=== PATIENT | female | born 1950 | race Caucasian/White ===

== ENCOUNTER 2024-01-23 21:11 | Observation (INO) | payer MEDICARE, OTHER, SELFPAY ==
[2024-01-23 18:47] VITALS: BP 159/76
[2024-01-23 19:30] VITALS: BP 149/74
[2024-01-23 19:44] LABS: % Basophils 0.9 % (0-2); % Eosinophils 1.8 % (0-6); % Immature Granulocytes 0.2 % (0-0.5); % Lymphocytes 35.4 % (20.5-51.1); % Monocytes 7.7 % (1.7-9.3); Absolute Basophils 0.1 10^3/uL (0-0.2); Absolute Eosinophils 0.1 10^3/uL (0-0.7); Absolute Lymphocytes 2.3 10^3/uL (1.2-3.4); Absolute Monocytes 0.5 10^3/uL (0.1-0.6); Absolute Neutrophils 3.6 10^3/uL (1.4-6.5); Hematocrit 37.2 % (37.0-47.0); Hemoglobin 12.7 g/dL (12.0-16.0); Mean Corp Hgb Conc. 34.1 g/dL (33.0-37.0); Mean Corpuscular Hgb 28.8 pg (27.0-31.0); Mean Corpuscular Volume 84.4 fL (81.0-99.0); Mean Platelet Volume 9.1 fL (7.4-10.4); Nucleated Red Blood Cells % 0 %; Platelet Count 236 10^3/uL (130-400); Red Blood Cell Count 4.41 10^6/uL (4.20-5.40); Red Cell Dist. Width 13.4 % (11.5-14.5); White Blood Cell Count 6.6 10^3/uL (4.8-10.8)
[2024-01-23 19:55] LABS: ALT (SGPT) 20 U/L (0-35); AST (SGOT) 53 U/L (14-36); Albumin 4.3 g/dl (3.5-5.0); Alkaline Phosphatase 74 U/L (38-126); Blood Urea Nitrogen 21 mg/dl (7-17); Calcium 9.7 mg/dl (8.4-10.2); Carbon Dioxide 23 mmol/L (22-30); Chloride 105 mmol/L (98-107); Glucose 101 mg/dl (70-99); Potassium 3.9 mmol/L (3.5-5.1); Sodium 136 mmol/L (135-145); Total Bilirubin 0.5 mg/dl (0.2-1.3); Total Protein 7.2 g/dl (6.3-8.2); eGFR > 60.00
[2024-01-23 20:03] LABS: Troponin I < 0.012 ng/ml
[2024-01-23 20:09] VITALS: BP 132/63
--- NOTE | 2024-01-23 20:29 | ED.GENMED ---
History of Present Illness
General
Chief Complaint: Chest Pain
Time Seen by Provider: 01/23/24 19:15
Travel History
Have you had any contact with someone who has COVID-19?: No
Do you have any symptoms of coronavirus? Fever > 100 degrees, chills, cough, shortness of breath, sore throat, loss of taste or smell, muscle aches, or headache?: No
History of Present Illness
History of Present Illness:
73-year-old female with history of hypertension and hyperlipidemia presents to the emergency department for eval of left-sided chest pain ongoing for the past 2 to 3 days. She denies any pleuritic nature to pain or positional but does note that it
is worse with exertion. Pain is constant and resolving. Currently rated 5 out of 10. Describes the pain as a burning sensation. Not worse after eating. Denies any associated fever, chills, sweats, shortness of breath, or lower extremity
swelling.
Past History
Past History
ED Past Medical History: HTN, Hypercholesterolemia and Other (Headache)
ED Past Surgical History: None
Social History
Tobacco: Non-smoker
Alcohol: None
Drug: None
Living: with family
Review of Systems
Review of Systems
Allergies reviewed?: Yes
All Other Systems: ROS reviewed and negative except as documented in HPI and ROS
Phy Exam
Physical Exam
Physical Exam:
GEN: Well appearing, NAD, WDWN
HEENT: Oral mucosa moist, no scleral icterus
Cardiac: Regular rate and rhythm, subtle 1 out of 6 systolic murmur
Lung: No respiratory distress, no tachypnea lungs clear to auscultation bilaterally
MSK: No gross deformity or injuries no lower extremity edema
Skin: Good color, no pallor or jaundice, no rashes
Neuro: AO x3, moves all extremities freely
Psych: Calm, cooperative
Scores
Heart Score for Chest Pain Patients
STEMI patient?: No
History: Highly Suspicious
ECG: Normal
Age: >/= 65 years
Risk Factors: 1 or 2 Risk Factors
Troponin: </= Normal Limit
Heart Score for Chest Pain Patients: 5
Heart Score Risk: 20.3% MACE over next 6 weeks
Course
Orders/Labs/Results
Orders:
Orders
01/23/24 18:49
Electrocardiogram (*1) Urgent
Reason for Study: Chest Pain
EKG- Treatment ONCE
01/23/24 19:29
CR Chest - 2 Views Urgent
Comment:
Reason For Exam: Chest pain
01/23/24 19:32
Complete Blood Count/With Diff Urgent
Comprehensive Metabolic Panel Urgent
Troponin I Urgent
01/23/24 20:19
Aspirin Chewable [Low Strength Aspirin] 324 mg PO NOW STA
Nitroglycerin Sublingual [Nitrostat (Sublingual)] 0.4 mg SL NOW STA
01/23/24 20:47
Admit/Transfer Patient As Directed
Co-Sign Provider:
Level of Care: Observation services
Assign to:: Telemetry
Physician / Group: brie
Diagnosis: chest pain
Reason for Telemetry: Chest Pain syndromes
Date to Stop Telemetry: 01/25/24
Time to Stop Telemetry: 11:00
01/23/24 20:48
Code Status As Directed
Resuscitation Status: Full Code
01/23/24 22:30
Troponin I Routine
01/25/24 11:00
DC Protocol for Telemetry ONCE
Abnormal Lab Results
01/23/24
19:32
BUN 21 H mg/dl
(7-17)
Glucose 101 H mg/dl
(70-99)
AST 53 H U/L
(14-36)
01/23/24 19:32
01/23/24 19:32
Vital Signs
Initial and Last Documented VS:
Initial Vital Signs
Temp Pulse Resp BP Pulse Ox
98.7 F 69 18 159/76 97
01/23/24 18:47 01/23/24 18:47 01/23/24 18:47 01/23/24 18:47 01/23/24 18:47
Last Documented Vital Signs
Temp Pulse Resp BP Pulse Ox
98.7 F 69 18 159/76 100
01/23/24 18:47 01/23/24 18:47 01/23/24 18:47 01/23/24 18:47 01/23/24 19:40
MDM/Problems Addressed
MDM/Problems Addressed:
Patient does have high risk for acute coronary syndrome given the exertional nature of her chest pain. It is certainly reassuring that the EKG and troponins are negative. However given her advanced age, multiple cardiac risk factors, and
exertional pain, I feel she is too high risk to be discharged home at this time. Will admit to the hospitalist service for further ischemic evaluation. Given her normal vital signs do not suspect pulmonary embolism as the pain is nonpleuritic and
she has no risk factor for this
Comment
Comment:
EKG independently interpreted by me shows normal sinus rhythm at a rate of [address] changes concerning for ischemia, QTc of 450
*Critical Care Note
Total Time (30-74mins, 75-104mins- exclusive of procedures): Not Applicable
ED Attending Note
-
Portions of this chart may have been created with voice recognition software.� Occasional wrong word or��sound alike� substitutions may have occurred due to the inherent limitations of voice recognition software.
Discharge Plan
Departure
Patient Disposition: Admit
Date of Disposition: 01/23/24
Time of Disposition: 20:31
Admit to: Telemetry
Presentation/result/management discussed w/ accepting MD/DO: Hospitalist
Discharge Problem:
Chest pain with high risk of acute coronary syndrome
Prescriptions:
No Action
amlodipine 5 MG tablet
5 mg PO DAILY
atorvastatin 10 MG tablet
10 mg PO QPM
losartan 50 mg tablet
50 mg PO DAILY
clonidine HCl 0.1 mg tablet
0.1 mg PO DAILY PRN (Reason: blood pressure)
labetalol 200 mg tablet
200 mg PO BID
aspirin 81 mg tablet,delayed release (DR/EC)
81 mg PO DAILY
magnesium oxide 400 mg (241.3 mg magnesium) tablet
400 mg PO DAILY
hydrochlorothiazide 12.5 mg capsule
12.5 mg PO DAILY
albuterol sulfate 90 mcg/actuation HFA aerosol inhaler
2 puff INHALATION R Q4HPRN PRN (Reason: sob/wheezing)
fluticasone furoate-vilanterol [Breo Ellipta] 100-25 mcg/dose blister with device
1 inh INHALATION R BIDPRN PRN (Reason: sob)
pantoprazole [Protonix] 40 mg tablet,delayed release (DR/EC)
40 mg PO QPM
Referrals:
Avtar Goodman MD [Family Provider] -
Interventions
Interventions:
*Risk Screen - Suicide Last Done: 01/23/24 18:47
*General Assessment Last Done: 01/23/24 18:47
*Neglect/Abuse Screening Last Done: 01/23/24 18:47
ED- Fall Risk Assessment Last Done: 01/23/24 19:40
ED- Cardiac Assessment Last Done: 01/23/24 19:40
Discharge Date and Time
Print Language: MALAY
[2024-01-23] MEDS: LOW STRENGTH ASPIRIN 324 MG PO (20:30)
[2024-01-23] MEDS: NITROSTAT (SUBLINGUAL) 0.400000000000000022 MG SL (20:30)
--- NOTE | 2024-01-23 20:50 | HPS.HSE ---
Family Physician
-
Family Physician: Avtar Goodman
Chief Complaint
-
chest pain
History of Present Illness
73-year-old Cook Islander-speaking female with past medical history of hypertension, hyperlipidemia, GERD presenting for left-sided chest pain for the past 2 days. Pain is worse with exertion. Pain described as aching and not related to eating, movement
or breathing. She also has some shortness of breath with exertion. Patient did yard work yesterday but pain started before that. Denies fevers or chills, sweats, or lower extremity edema. No history of heart disease.
Both parents had heart disease and in their 80s.
Patient does not drink alcohol or smoke.
Medical History
Past Medical History
Past Medical History: Reports Other ( hypertension, hyperlipidemia, GERD)
Past Surgical History: Reports None
Social History
Tobacco: Non-smoker
Alcohol: None
Drug: None
Family History
Family History: Not pertinent
Allergies / Home Medications
Allergies reflects when Allergies were last updated in [facility].
Home Medications with original date entered in [facility]
Allergy/Medication List:
Allergies
Allergy/AdvReac Type Severity Reaction Status Date / Time
No Known Allergies Allergy Verified 01/27/23 19:09
Home Medications
amlodipine 5 mg tablet 5 mg PO DAILY 11/16/21
atorvastatin 10 mg tablet 10 mg PO QPM 11/16/21
pantoprazole 40 mg tablet,delayed release (Protonix) 40 mg PO DAILY #14 tabs 01/28/23
Review of Systems
-
History Source: Patient
A 12 point ROS was completed and negative except as noted: Yes
Constitutional: Reports No Symptoms
EENT: Reports No Symptoms
Respiratory: Reports No Symptoms
Cardiac: Reports See HPI
Abdomen/GI: Reports No Symptoms
: Reports No Symptoms
Musculoskeletal: Reports No Symptoms
Skin: Reports No Symptoms
Neurological: Reports No Symptoms
Endocrine: Reports No Symptoms
Hematologic/Lymphatic: Reports No Symptoms
Psych: Reports No Symptoms
Physical Exam
Vital Signs
Vital Signs
Temp Pulse Resp BP Pulse Ox
98.7 F 69 18 159/76 100
01/23/24 18:47 01/23/24 18:47 01/23/24 18:47 01/23/24 18:47 01/23/24 19:40
Physical Exam
General: Well Developed, Well Nourished and No Apparent Distress
HEENT: NormoCephalic, Moist mucous membranes and Atraumatic
Respiratory: Clear
Cardiac: S1/S2 and Regular Rhythm; No Murmur or Rub
GI: Soft, Non Tender, Non Distended and Normal Bowel Sounds; No Organomegaly
Rectal: Deferred by Provider
Musculoskeletal: No Clubbing, No Cyanosis and No Edema
Skin: No Rash
Neuro: Nonfocal/grossly intact
Laboratory Results
-
01/23/24 19:32
01/23/24 19:32
Laboratory Results
Total Bilirubin 0.5 mg/dl (0.2-1.3) 01/23/24 19:32
AST 53 U/L (14-36) H 01/23/24 19:32
ALT 20 U/L (0-35) 01/23/24 19:32
Alkaline Phosphatase 74 U/L (38-126) 01/23/24 19:32
Troponin I < 0.012 ng/ml 01/23/24 19:32
Data Reviewed
-
Lab Data: Labs Reviewed by me
Old Records: Reviewed
Impression/Plan
-
IMPRESSION:
PLAN:
# Atypical chest pain, possibly musculoskeletal
-Left chest tender to palpation
-EKG shows normal sinus rhythm with T wave inversion in V1
-Chest x-ray unremarkable
-Troponin negative, continue to trend
-Aspirin and nitro given with improvement in pain
-Cardiology consulted, n.p.o. past midnight recommended
Essential hypertension
-Continue losartan, labetalol, hydrochlorothiazide, clonidine, amlodipine
Hyperlipidemia
-Continue statin
GERD
-Continue Protonix
Full code
DVT prophylaxis�heparin
n.p.o. past midnight
[2024-01-23 21:00] VITALS: BP 129/67
[2024-01-23 21:55] VITALS: BP 147/55
[2024-01-23 22:04] VITALS: BMI 37.4
[2024-01-24 02:02] LABS: Troponin I < 0.012 ng/ml
[2024-01-24 03:25] VITALS: BP 112/78
--- NOTE | 2024-01-24 06:36 | PTCARENOTE ---
Pt admitted to [facility] from ER. AAOx3. No c/o pain. Pt afebrile. Lungs clear, on room air. No N/V or stool. Skin intact. Language line at bedside for use of [employer] school psychology specialist. Awaiting cardiology consult and further plan.
[2024-01-24 07:49] LABS: % Basophils 0.9 % (0-2); % Eosinophils 2.3 % (0-6); % Immature Granulocytes 0.2 % (0-0.5); % Lymphocytes 38.4 % (20.5-51.1); % Monocytes 9.2 % (1.7-9.3); Absolute Basophils 0.1 10^3/uL (0-0.2); Absolute Eosinophils 0.1 10^3/uL (0-0.7); Absolute Lymphocytes 2.1 10^3/uL (1.2-3.4); Absolute Monocytes 0.5 10^3/uL (0.1-0.6); Absolute Neutrophils 2.7 10^3/uL (1.4-6.5); Hematocrit 37.3 % (37.0-47.0); Hemoglobin 12.7 g/dL (12.0-16.0); Mean Corpuscular Hgb 28.3 pg (27.0-31.0); Mean Corpuscular Volume 83.3 fL (81.0-99.0); Nucleated Red Blood Cells % 0 %; Platelet Count 229 10^3/uL (130-400); Red Blood Cell Count 4.48 10^6/uL (4.20-5.40); Red Cell Dist. Width 13.3 % (11.5-14.5); White Blood Cell Count 5.5 10^3/uL (4.8-10.8)
[2024-01-24] MEDS: SYMBICORT 80/4.5 MCG INHALER 2 PUFF INH (07:54)
[2024-01-24 08:09] LABS: Troponin I < 0.012 ng/ml
[2024-01-24] MEDS: HEPARIN 5000 UNITS SC (08:11)
[2024-01-24 08:14] VITALS: BP 134/67
[2024-01-24] MEDS: TRANDATE 200 MG PO (08:15)
[2024-01-24] MEDS: ORETIC 12.5 MG PO (08:15)
[2024-01-24] MEDS: ASPIR LOW (ENTERIC COATED) 81 MG PO (08:15)
[2024-01-24] MEDS: COZAAR 50 MG PO (08:15)
[2024-01-24] MEDS: MAG-TAB SR 84 MG PO (08:15)
[2024-01-24] MEDS: NORVASC 5 MG PO (08:16)
--- NOTE | 2024-01-24 09:08 | CON.CAR ---
Addendum entered and electronically signed by Jake Garcia MD 01/24/24 13:10:
Patient seen and examined in collaboration with MACHINE LEATHER TRIMMER; agree with below.
-Patient with likely atypical chest pain; no objective findings consistent with ACS.
-Transthoracic echocardiogram today revealed normal LVEF; mild to moderate aortic stenosis was noted.
-The patient can be discharged home from a cardiac standpoint with close follow-up with her primary Headlight Assembler (Dr. Serrano) who can arrange an outpatient stress test in the near future.
Original Note:
Consultation
Consultation Request
Date/Time Consultation Requested: 01/23/242199
Date/Time Consultation Performed: 01/24/24907
Requesting Provider: Dr. Leyva
Performing Provider: Adelaida WHYTE for Dr. Garcia
Reason for Consultation: chest discomfort
Medical History
-
Chief Complaint: chest discomfort
History of Present Illness:
73 y/o female with hypertension, dyslipidemia, and GERD who is here for evaluation of chest discomfort that has been present since last , with some associated SOB. It has been fairly constant. She describes it as a dull ache to the left
upper chest. It is not worse with exertion, or to palpation. She saw her family doctor yesterday, who suggested she come to the ER. She has shoulder pain from arthritis and wonders if they could be related. She is in no distress at the time of my
assessment. Trops and EKG normal. Of note, she is Tajik-speaking and we used the language line with a echo technician to communicate effectively.
Past Medical History
Past Medical History: GERD, HTN and Hypercholesterolemia
Social History
Tobacco: Non-Smoker
Family History
Family History: Reviewed & Not Pertinent
Allergies / Home Medications
Allergy/AdvReac Type Severity Reaction Status Date / Time
No Known Allergies Allergy Verified 01/27/23 19:09
�Medication �Instructions �Recorded �Confirmed �Type
amlodipine 5 mg tablet 5 mg PO DAILY 11/16/21 01/23/24 History
atorvastatin 10 mg tablet 10 mg PO QPM 11/16/21 01/23/24 History
albuterol sulfate 90 mcg/actuation 2 puff inhalation R Q4HPRN PRN 01/23/24 01/23/24 History
aerosol inhaler sob/wheezing
aspirin 81 mg tablet,delayed 81 mg PO DAILY 01/23/24 01/23/24 History
release
clonidine HCl 0.1 mg tablet 0.1 mg PO DAILY PRN blood pressure 01/23/24 01/23/24 History
fluticasone furoate 100 1 inh inhalation R BIDPRN PRN sob 01/23/24 01/23/24 History
mcg-vilanterol 25 mcg/dose
inhalation powder (Breo Ellipta)
hydrochlorothiazide 12.5 mg capsule 12.5 mg PO DAILY 01/23/24 01/23/24 History
labetalol 200 mg tablet 200 mg PO BID 01/23/24 01/23/24 History
losartan 50 mg tablet 50 mg PO DAILY 01/23/24 01/23/24 History
magnesium oxide 400 mg (241.3 mg 400 mg PO DAILY 01/23/24 01/23/24 History
magnesium) tablet
pantoprazole 40 mg tablet,delayed 40 mg PO QPM 01/23/24 01/23/24 History
release (Protonix)
Review of Systems
-
History Source: Patient
All other systems: Negative unless noted
Respiratory: Trouble Breathing
Cardiac: Chest Pain
Physical Exam
Vital Signs
Temp Pulse Resp BP Pulse Ox
98.3 F 60 16 134/67 95
01/24/24 08:14 01/24/24 08:14 01/24/24 08:14 01/24/24 08:14 01/24/24 08:14
Lab Results
01/24/24 07:33
Troponin I < 0.012 ng/ml 01/24/24 07:33
Physical Exam
General: Well Developed, Well Nourished and No Apparent Distress
HEENT: Normocephalic and Anicteric
Respiratory: Clear and Non Labored Respirations
Cardiac: Regular Rhythm
Skin: Warm and Dry
Neuro: AO x 3
Psych: Calm
Impression / Plan
-
Chest discomfort:
-atypical
-trops and EKG's okay
-check echo and if echo normal, should follow-up with OP gis mapping technician for stress testing (hx HTN, dyslipidemia)
HTN:
-stable
-continue meds
Dyslipidemia:
-on statin
GERD:
-on PPI
Data Reviewed
-
EKG: Tracing Personally Visualized and interpreted (NSR 66 BPM)
Radiology: Report Reviewed by me (CXR: No acute cardiopulmonary process.)
Labs: Labs Reviewed by me
[2024-01-24 09:11] LABS: ALT (SGPT) 19 U/L (0-35); AST (SGOT) 48 U/L (14-36); Albumin 3.8 g/dl (3.5-5.0); Alkaline Phosphatase 75 U/L (38-126); Blood Urea Nitrogen 19 mg/dl (7-17); Calcium 9.3 mg/dl (8.4-10.2); Carbon Dioxide 26 mmol/L (22-30); Chloride 105 mmol/L (98-107); Estimated Creatinine Clearance 74 ml/min; Glucose 91 mg/dl (70-99); Potassium 3.7 mmol/L (3.5-5.1); Sodium 138 mmol/L (135-145); Total Bilirubin 0.7 mg/dl (0.2-1.3); Total Protein 6.6 g/dl (6.3-8.2); eGFR > 60.00
--- NOTE | 2024-01-24 13:00 | W.PN.HOSP.TC ---
Addendum entered and electronically signed by Roscoe Lim MD 01/24/24 17:01:
Patient seen and examined
Discussed with cardiology
Impression/plan:
73 years old female with hypertension, dyslipidemia, asthma, obesity BMI of 37 presents with left-sided chest pain
Most likely atypical, when patient refers to positional pain affecting with and along left shoulder arthritis.
Denies any shortness of breath
Hemodynamically stable with stable respiratory status upon presentation
Chest pain-free at time of my evaluation.
Exam unremarkable with no evidence of distress bronchospasm.
ECG normal sinus rhythm
Serial cardiac markers within normal limits
Echocardiogram with preserved biventricular function and no valvular abnormalities.
D-dimer negative.
Continue preadmission antihypertensive regimen
Continue statin
Outpatient cardiology follow-up for stress test.
Original Note:
Today's Communication/Plan
-
D-dimer negative
Possible discharge today, pending U/S bilateral lower extremities
Assessment / Plan
Assessment / Plan
IMPRESSION: This is a 73-year-old [place]ib[place]ian-speaking female with past medical history of hypertension, hyperlipidemia, GERD presenting for left-sided chest pain for the past 2 days.
PLAN:
# Atypical chest pain, possibly musculoskeletal
-Left chest tender to palpation
-EKG shows normal sinus rhythm with T wave inversion in V1
-Chest x-ray unremarkable
-Troponin negative, continue to trend
-Aspirin and nitro given with improvement in pain
-Cardiology consult appreciated
-ECHO showed Left ventricular ejection fraction is 65-70%, Normal right ventricular size and function, Mild to moderate aortic stenosis
-D-dimer: negative, U/S bilateral lower extremities: pending
-Discharge pending today for patient with outpatient follow-up cardiology for stress test
#Essential hypertension
-Continue losartan, labetalol, hydrochlorothiazide, clonidine, amlodipine
#Hyperlipidemia
-Continue statin
#GERD
-Continue Protonix
Full code
DVT prophylaxis�heparin
Anticipated Discharge: 24 - 48 hours
Subjective/Interval History
-
Date of Service: January 24, 2024
Objective Data
-
Labs:
Laboratory Results
01/24/24
07:33
WBC 5.5
Hgb 12.7
Hct 37.3
Plt Count 229
Sodium 138
Potassium 3.7
Chloride 105
Carbon Dioxide 26
BUN 19 H
Creatinine 0.7
Glucose 91
Calcium 9.3
Total Bilirubin 0.7
AST 48 H
ALT 19
Alkaline Phosphatase 75
Vital Signs:
Vital Signs
Temp Pulse Resp BP Pulse Ox
98.3 F 60 16 134/67 95
01/24/24 08:14 01/24/24 08:14 01/24/24 08:14 01/24/24 08:14 01/24/24 08:14
Review of Systems
-
History Source: Patient
All other systems: Reviewed and negative
Physical Exam
-
General: No Apparent Distress
HEENT: Normocephalic
Respiratory: Clear to Auscultation
Cardiac: Regular Rhythm and S1/S2; Negative Murmur
GI: Soft, Nontender and Nondistended
Musculoskeletal: No Edema
Skin: Negative Rash
Neuro: Awake, Alert and Oriented
Psych: Calm
[2024-01-24 13:47] LABS: D-Dimer 0.47 ug/mlFEU (0.00-0.50)
[2024-01-24 13:57] LABS: Troponin I < 0.012 ng/ml
[2024-01-24 15:28] VITALS: BP 122/60
--- NOTE | 2024-01-24 15:41 | CM ---
Met with patient at bedside; asked me to call her son; she does not speak or understand much Norwegian
Spoke with son via phone to complete initial assessment
Pharmacy verified: [facility], [facility]
Son reported that his mother lives with him, his , and his 4 children in a multilevel home; 10 steps to enter, lives on the 1st floor of the house; has her own bedroom and bathroom; bath has tub w/shower
PLOF: son reported that mother is independent with ambulation, steps and ADLs; drives
SNF/Rehab/Home Health utilization history: none
Transportation: Son will provide transport home
Plan: discharge to home when medically stable; do not anticipate needs
--- NOTE | 2024-01-24 16:39 | W.DCSUMMARY ---
Documented by User: Kyung Jacobo, Resident, 01/24/24 16:55
Discharge Summary
Discharge Data
Date of Admission: 01/23/24
Date of Discharge: 01/24/24
-
Pending Results: No
Hospital Course
This is a 73-year-old Mexican-speaking female with past medical history of hypertension, hyperlipidemia, GERD presenting for left-sided chest pain for the past 2 days. Her left chest was tender to palpation and thought to be possibly
musculoskeletal. EKG showed normal sinus rhythm with T wave inversion in V1. Chest x-ray was done and was unremarkable, her troponins were negative. She was given aspirin and nitroglycerin and she had improvement in her pain. Cardiology
consulted. Her echocardiogram showed ejection fraction of 65 to 70% with mild to moderate aortic stenosis. Due to the patient's improvement of pain, she should be followed up from cardiac outpatient for stress test. Patient is to be discharged
home and to follow-up with outpatient cardiology.
Discharge Plan
-
Patient Disposition: Home (Routine Discharge)
Discharge Diagnosis/Procedures: Atypical chest pain (possibly musculoskeletal)
Diet: Low Sodium
Activity: As tolerated
Others Tests: Patient to follow-up with iron setter outpatient for stress test
Referrals:
Avtar oGodman MD [Family Provider] -
Deny Serrano MD [Active] - in one to two weeks
Prescriptions:
Continued
amlodipine 5 MG tablet
5 mg PO DAILY
atorvastatin 10 MG tablet
10 mg PO QPM
losartan 50 mg tablet
50 mg PO DAILY
clonidine HCl 0.1 mg tablet
0.1 mg PO DAILY PRN (Reason: blood pressure)
labetalol 200 mg tablet
200 mg PO BID
aspirin 81 mg tablet,delayed release (DR/EC)
81 mg PO DAILY
magnesium oxide 400 mg (241.3 mg magnesium) tablet
400 mg PO DAILY
hydrochlorothiazide 12.5 mg capsule
12.5 mg PO DAILY
albuterol sulfate 90 mcg/actuation HFA aerosol inhaler
2 puff INHALATION R Q4HPRN PRN (Reason: sob/wheezing)
fluticasone furoate-vilanterol [Breo Ellipta] 100-25 mcg/dose blister with device
1 inh INHALATION R BIDPRN PRN (Reason: sob)
pantoprazole [Protonix] 40 mg tablet,delayed release (DR/EC)
40 mg PO QPM
Discharge Orders:
Discharge Patient (As Directed); Ordered 01/24/24
Ordered By: Kyung Jacobo
Discharge Date and Time
Print Language: SPANISH

Documented by User: Roscoe Lim MD 01/24/24 17:01
Discharge Summary
Discharge Data
Date of Admission: 01/23/24
Date of Discharge: 01/24/24
Discharge Plan
-
Patient Disposition: Home (Routine Discharge)
Discharge Diagnosis/Procedures: Atypical chest pain (possibly musculoskeletal)
Diet: Low Sodium
Activity: As tolerated
Others Tests: Patient to follow-up with iron setter outpatient for stress test
Referrals:
Avtar Goodman MD [Family Provider] -
Deny Serrano MD [Active] - in one to two weeks
Prescriptions:
Continued
amlodipine 5 MG tablet
5 mg PO DAILY
atorvastatin 10 MG tablet
10 mg PO QPM
losartan 50 mg tablet
50 mg PO DAILY
clonidine HCl 0.1 mg tablet
0.1 mg PO DAILY PRN (Reason: blood pressure)
labetalol 200 mg tablet
200 mg PO BID
aspirin 81 mg tablet,delayed release (DR/EC)
81 mg PO DAILY
magnesium oxide 400 mg (241.3 mg magnesium) tablet
400 mg PO DAILY
hydrochlorothiazide 12.5 mg capsule
12.5 mg PO DAILY
albuterol sulfate 90 mcg/actuation HFA aerosol inhaler
2 puff INHALATION R Q4HPRN PRN (Reason: sob/wheezing)
fluticasone furoate-vilanterol [Breo Ellipta] 100-25 mcg/dose blister with device
1 inh INHALATION R BIDPRN PRN (Reason: sob)
pantoprazole [Protonix] 40 mg tablet,delayed release (DR/EC)
40 mg PO QPM
Discharge Orders:
Discharge Patient (As Directed); Ordered 01/24/24
Ordered By: Kyung Jacobo
Discharge Date and Time
Print Language: SPANISH
[2024-01-24] MEDS: LIPITOR 10 MG PO (17:08)
[2024-01-24] MEDS: PROTONIX 40 MG PO (17:08)
== END 2024-01-24 18:52 | disposition home or self-care (01) ==
LOC: 3 WEST ACU 21:11
PROVIDERS: Physician Assistant; Student in an Organized Health Care Education/Training Program; ADMITTING PHYSICIAN Hospitalist; ATTENDING PHYSICIAN Internal Medicine; CONSULT PHYSICIAN Internal Medicine; EMERGENCY PHYSICIAN Emergency Medicine; FAMILY PHYSICIAN Internal Medicine
DX: R07.89 Other chest pain (principal); E78.00 Pure hypercholesterolemia, unspecified; I10 Essential (primary) hypertension; K21.9 Gastro-esophageal reflux disease without esophagitis; J45.909 Unspecified asthma, uncomplicated; M25.511 Pain in right shoulder; I35.0 Nonrheumatic aortic (valve) stenosis; R94.31 Abnormal electrocardiogram [ECG] [EKG]; E66.9 Obesity, unspecified; R06.02 Shortness of breath; Z82.49 Family history of ischemic heart disease and other diseases of the circulatory system; Z79.82 Long term (current) use of aspirin; Z79.51 Long term (current) use of inhaled steroids; Z68.37 Body mass index [BMI] 37.0-37.9, adult
CPT/HCPCS: 71046; 80053; 84484; 85025; 85379; 93005; 93306; 94640; 99285; G0378

== ENCOUNTER 2024-07-14 12:44 | Emergency (ER) | payer MEDICARE, OTHER, SELFPAY ==
[2024-07-14 12:47] VITALS: BP 137/76
--- NOTE | 2024-07-14 13:59 | ED.GENMED ---
History of Present Illness
General
Chief Complaint: Back Pain
Time Seen by Provider: 07/14/24 13:51
History of Present Illness
History of Present Illness:
73-year-old female with history of hypertension and hyperlipidemia presents to the emergency department for evaluation of left-sided low back pain for the past week, over the past several days the pain has begun to radiate toward the left leg. With
ambulation she develops increasing leg pain and cannot tolerate being upright for an extended period of time. Denies any fevers or chills, denies urinary retention or dysuria. No traumatic injuries. Has not tingling or numbness in the left lower
extremity while at rest. Has been taking [id number] NSAIDs without symptom relief. No history of lumbar disc disease
Past History
Past History
ED Past Medical History: HTN, Hypercholesterolemia and Other (Headache)
ED Past Surgical History: None
Social History
Tobacco: Non-smoker
Alcohol: None
Drug: None
Living: with family
Review of Systems
Review of Systems
Allergies reviewed?: Yes
All Other Systems: ROS reviewed and negative except as documented in HPI and ROS
Phy Exam
Physical Exam
Physical Exam:
GEN: Well appearing, NAD, WDWN
HEENT: Oral mucosa moist, no scleral icterus
Cardiac: Regular rate
Lung: No respiratory distress, no tachypnea
MSK: No gross deformity or injuries. No midline lumbar spine tenderness, no paraspinous muscle tenderness. Left hip range of motion normal without pain, positive straight leg raise on the left at 45 degrees.
Skin: Good color, no pallor or jaundice, no rashes
Neuro: AO x3, moves all extremities freely
Psych: Calm, cooperative
Course
Orders/Labs/Results
Orders:
Orders
07/14/24 13:56
Acetaminophen [Tylenol] 1,000 mg PO NOW STA
Ketorolac [Toradol] 30 mg IM NOW STA
Lidocaine [Lidocaine 4% Patch] 1 patch TOPICAL NOW STA
Apply Lidocaine patch(s) to:: lumbar
07/14/24 15:57
Tizanidine [Zanaflex] 4 mg PO NOW STA
07/14/24 16:37
CR Knee - Left 4 Or More View* Urgent
Comment:
Reason For Exam: pain
07/14/24 17:35
Prednisone [Deltasone] 60 mg PO NOW STA
Vital Signs
Initial and Last Documented VS:
Initial Vital Signs
Temp Pulse Resp BP Pulse Ox
98.3 F 64 16 137/76 96
07/14/24 12:47 07/14/24 12:47 07/14/24 12:47 07/14/24 12:47 07/14/24 12:47
Last Documented Vital Signs
Temp Pulse Resp BP Pulse Ox
98.3 F 71 21 134/56 96
07/14/24 12:47 07/14/24 16:00 07/14/24 16:00 07/14/24 15:56 07/14/24 16:00
MDM/Problems Addressed
MDM/Problems Addressed:
Symptoms are most compatible with lumbar disc disease causing radiculopathy. She was treated supportively with several medications in the emergency department without significant improvement. Will treat with a corticosteroid steroid taper over the
course of 2 weeks as well as pain medications, recommend primary care follow-up. No urinary retention symptoms or saddle anesthesias concerning for cauda equina. No traumatic injuries to suggest there is a need for lumbar imaging at this time
*Critical Care Note
Total Time (30-74mins, 75-104mins- exclusive of procedures): Not Applicable
ED Attending Note
-
Portions of this chart may have been created with voice recognition software.� Occasional wrong word or��sound alike� substitutions may have occurred due to the inherent limitations of voice recognition software.
Discharge Plan
Departure
Patient Disposition: Home (Routine Discharge)
Date of Disposition: 07/14/24
Time of Disposition: 17:36
Patient with high blood pressure during this ER visit?: No
Discharge Problem:
Acute left lumbar radiculopathy
Instructions: Sciatica (DC)
Prescriptions:
New
prednisone 10 mg tablet
10 mg PO DIRECTED Qty: 43 0RF
Rx Instructions:
Once daily as follows: 60, 60, 50, 50, 40, 40, 30, 30, 20, 20, 10, 10, 5, 5
oxycodone 5 mg tablet
5 mg PO Q8H PRN (Reason: Pain) Qty: 10 0RF
No Action
amlodipine 5 MG tablet
5 mg PO DAILY
atorvastatin 10 MG tablet
10 mg PO QPM
losartan 50 mg tablet
50 mg PO DAILY
clonidine HCl 0.1 mg tablet
0.1 mg PO DAILY PRN (Reason: blood pressure)
labetalol 200 mg tablet
200 mg PO BID
aspirin 81 mg tablet,delayed release (DR/EC)
81 mg PO DAILY
magnesium oxide 400 mg (241.3 mg magnesium) tablet
400 mg PO DAILY
hydrochlorothiazide 12.5 mg capsule
12.5 mg PO DAILY
albuterol sulfate 90 mcg/actuation HFA aerosol inhaler
2 puff INHALATION R Q4HPRN PRN (Reason: sob/wheezing)
fluticasone furoate-vilanterol [Breo Ellipta] 100-25 mcg/dose blister with device
1 inh INHALATION R BIDPRN PRN (Reason: sob)
pantoprazole [Protonix] 40 mg tablet,delayed release (DR/EC)
40 mg PO QPM
Referrals:
Avtar Goodman MD [Family Provider] -
Activity Restrictions/Additional Instructions:
You may take Tylenol however do not take any ibuprofen
Follow-up with your primary care physician for an MRI of your low back if symptoms do not improve
Interventions
Interventions:
*Risk Screen - Suicide Last Done: 07/14/24 12:47
*General Assessment Last Done: 07/14/24 12:47
*Neglect/Abuse Screening Last Done: 07/14/24 15:56
*ED COVID-19 Vaccine History Last Done: 07/14/24 15:56
ED-Musculoskeletal Assessment Last Done: 07/14/24 15:56
Discharge Date and Time
Print Language: MACEDONIAN
[2024-07-14 15:56] VITALS: BP 134/56; BMI 38.5
[2024-07-14 16:00] VITALS: BP 136/61
[2024-07-14] MEDS: TYLENOL 1000 MG PO (16:01)
[2024-07-14] MEDS: TORADOL 30 MG IM (16:02)
[2024-07-14] MEDS: LIDOCAINE 4% PATCH 1 PATCH TOPICAL (16:03)
[2024-07-14 17:00] VITALS: BP 138/59
[2024-07-14] MEDS: ZANAFLEX 4 MG PO (17:30)
[2024-07-14] MEDS: DELTASONE 60 MG PO (17:38)
== END 2024-07-14 18:02 | disposition home or self-care (01) ==
LOC: EMR 12:44
PROVIDERS: EMERGENCY PHYSICIAN Emergency Medicine; FAMILY PHYSICIAN Internal Medicine
DX: M54.16 Radiculopathy, lumbar region (principal); I10 Essential (primary) hypertension; E78.00 Pure hypercholesterolemia, unspecified
CPT/HCPCS: 99284; 96372; 73564; 93005